=== PATIENT | female | born 1980 | race Asian ===

== ENCOUNTER → 2018-05-15 | Outpatient (CLI) | payer OTHER | LOC: BMCIMAGING 09:53 | PROVIDERS: ATTEND Internal Medicine Rheumatology | DX: M06.09 Rheumatoid arthritis without rheumatoid factor, multiple sites (principal); M25.831 Other specified joint disorders, right wrist ==

== ENCOUNTER → 2018-07-22 | Outpatient (CLI) | payer OTHER | LOC: CIMAGING 07:04 | PROVIDERS: ATTEND Nurse Practitioner | DX: E04.2 Nontoxic multinodular goiter (principal) | CPT/HCPCS: 76536-PO ==